=== PATIENT | female | born 1990 | race Caucasian/White ===

== ENCOUNTER 2021-12-06 00:31 | Emergency (ER) | payer SELFPAY ==
[~2021-12-06] VITALS: Ht 167.6 cm; Wt 90.0 kg
[2021-12-06 00:35] VITALS: BP 123/85
[2021-12-06] MEDS ORDERED: ALBUTEROL (0.083%) 2.5MG/3ML NEB HHN STA (01:10)
[2021-12-06] MEDS ORDERED: IPRATROPIUM BROMIDE (0.02%) 0.5MG/2.5ML NEB HHN STA (01:10)
[2021-12-06] MEDS ORDERED: METHYLPREDNISOLONE SOD SUCC 125 MG/2 ML VIAL IV STA (01:10)
[2021-12-06] MEDS ORDERED: MAGNESIUM 2 G PREMIX 50 ML IV ONE (01:15)
[2021-12-06] MEDS ORDERED: ALBU18HF2 IH (03:05)
[2021-12-06] MEDS ORDERED: PRED10TA MT (03:05)
== END 2021-12-06 03:34 | disposition home or self-care (01) ==
LOC: ER 00:31
DX: J45.909 Unspecified asthma, uncomplicated (principal); R00.0 Tachycardia, unspecified
CPT/HCPCS: 94640; 96365; 96375; 99284; J2930; J3475; Z7610